=== PATIENT | female | born 1965 | race Caucasian/White ===

== ENCOUNTER 2017-05-13 10:23 | Outpatient (CLI) | payer BC ==
[2017-05-13 17:41] LABS: BILIRUBIN,URINE NEGATIVE (NEGATIVE)
[2017-05-13 18:16] LABS: UR CULTURE IF IND NOT INDICATED
== END 2017-05-13 10:24 | disposition home or self-care (01) ==
LOC: LAB.R 10:23
PROVIDERS: ATTEND Physician Assistant Medical
DX: N39.0 Urinary tract infection, site not specified (principal)
CPT/HCPCS: 81001; 87086

== ENCOUNTER 2019-12-14 17:07 | Outpatient (CLI) | payer BC | END 2019-12-14 17:08 | disposition home or self-care (01) | LOC: COV 17:07 | PROVIDERS: ATTEND Family Medicine | DX: R05 Cough (principal) ==

== ENCOUNTER 2021-08-03 11:30 | Outpatient (CLI) | payer BC ==
--- NOTE | 2021-08-03 17:11 | XRAY Report ---
PROCEDURE: Shoulder 3 View RT, x-ray INDICATIONS: RIGHT SHOULDER IMPINGEMENT TECHNIQUE: 3 views of the shoulder were acquired. COMPARISON: None. FINDINGS: Bones: No fractures or dislocations. No suspicious bony lesions. Visualized ribs appear intact. Mo derate AC joint hypertrophy noted. No dislocation. Soft tissues: No suspicious soft tissue calcifications. IMPRESSION: Moderate right AC joint hypertrophy. No fracture or dislocation. Reviewed by: Bry Marcum MD on 08/03/2021 4:09 PM [facility] Approved by: Bry Marcum MD on 08/03/2021 4:09 PM [place] Station ID: [id number]
== END 2021-08-03 23:59 | disposition home or self-care (01) ==
LOC: DI.N 11:30
PROVIDERS: ATTEND Physician Assistant Medical
DX: M75.41 Impingement syndrome of right shoulder (principal); M89.311 Hypertrophy of bone, right shoulder

== ENCOUNTER 2021-08-22 08:00 | Outpatient (CLI) | payer BC | END 2021-08-22 23:59 | disposition home or self-care (01) | LOC: LAB 08:00 | PROVIDERS: ATTEND Physician Assistant | DX: R09.81 Nasal congestion (principal); Z20.822 Contact with and (suspected) exposure to COVID-19 ==

== ENCOUNTER 2021-08-22 12:59 | Outpatient (CLI) | payer BC | END 2021-08-22 13:00 | disposition short-term general hospital (02) | LOC: EMS 12:59 | DX: R00.2 Palpitations (principal); R42 Dizziness and giddiness | CPT/HCPCS: A0425; A0427 ==

== ENCOUNTER 2022-02-24 08:00 | Outpatient (CLI) | payer BC | END 2022-02-24 23:59 | disposition home or self-care (01) | LOC: LAB.S 08:00 | PROVIDERS: ATTEND Emergency Medicine | DX: R19.7 Diarrhea, unspecified (principal) | CPT/HCPCS: 87493 ==

== ENCOUNTER 2023-05-03 23:41 | Outpatient (CLI) | payer BC | END 2023-05-03 23:59 | disposition critical access hospital (66) | LOC: EMS 23:41 | DX: M54.50 Low back pain, unspecified (principal); R25.2 Cramp and spasm; X50.9XXA Other and unspecified overexertion or strenuous movements or postures, initial encounter; Y92.008 Other place in unspecified non-institutional (private) residence as the place of occurrence of the external cause | CPT/HCPCS: A0425; A0427 ==

== ENCOUNTER 2023-05-04 00:07 | Emergency (ER) | payer BC ==
[2023-05-04] MEDS ORDERED: ONDANSETRON 4 MG/2 ML VIAL IVP STA (01:19)
[2023-05-04] MEDS ORDERED: HYDROmorphone 1 MG/ML CARPUJECT IVP STA (01:19)
[2023-05-04] MEDS ORDERED: DEXAMETHASONE 10 MG/ML VIAL IV STA (01:19)
[2023-05-04] MEDS ORDERED: CYCLOBENZAPRINE 10 MG TABLET PO STA (01:20)
[2023-05-04] MEDS ORDERED: SODIUM CHLORIDE 0.9% 1,000 ML IV STA (02:59)
--- NOTE | 2023-05-04 03:55 | ED Physician Documentation ---
History of Present Illness - Stated complaint Stated Complaint: BACK PX - Chief complaint Chief Complaint: Back Pain - History obtained from History obtained from: Patient, EMS - Additonal information Additional information: The patient comes to the emergency department chief complaint of low back spasms after pulling a muscle in her back while getting a heavy tent down from a high shelf in her garage yesterday. The patient states that she felt a twinge in her back at the time, but that did not hurt right away. However, as time went on, the patient began to have more pain in the area and then began having spasms triggered by various movements of her trunk or upper extremities. She states that the periods of spasm would last about 20 seconds and were very painful. The patient states she has been able to move around in bed as long as she does not move too fast, but was afraid to get up and walk around, so has been using a diaper today. However, she does state that she can control her bowels and bladder. No pain, numbness, or tingling radiating down her legs. No history of symptoms like this previously. She states she finally decided to come in because her episodes of spasm were getting closer and closer together and she could hardly move without triggering one. She states she has tried taking ibuprofen and Tylenol at home, but is not helping. No other complaints at this time. PD PAST MEDICAL HISTORY - Past Surgical History Past Surgical History: Yes Ortho: ACL reconstruction /[employer]: section, Hysterectomy - Present Medications Home Medications: Ambulatory Orders Medication Instructions Recorded Confirmed Cyclobenzaprine [Flexeril] 10 mg PO TID PRN #20 tablet 05/04/23 HYDROcod/ACETAM 5/325 [[place] 5/325] 1 - 2 tablet PO Q6H PRN #14 tablet 05/04/23 Ondansetron Odt [Zofran] 4 mg TL Q6H PRN #10 tablet 05/04/23 - Allergies Allergies/Adverse Reactions: Allergies Allergy/AdvReac Type Severity Reaction Status Date / Time acetaminophen [From Percocet] AdvReac Emesis Verified 05/04/23 00:12 oxycodone HCl * AdvReac Emesis Verified 05/04/23 00:12 [From Percocet] - Social History Does the pt smoke?: No Smoking Status: Never smoker Does the pt drink ETOH?: Yes Does the pt have substance abuse?: No - POLST Patient has POLST: No PD ED PE NORMAL - Vitals Vital signs reviewed: Yes - General General: Alert and oriented X 3, No acute distress, Well developed/nourished, Other (The patient is lying on her left side with legs curled up. She appears mildly uncomfortable but otherwise in no apparent distress.) - HEENT HEENT: Atraumatic, PERRL, EOMI, Moist mucous membranes - Neck Neck: Supple, no meningeal sign - Cardiac Cardiac: RRR, No murmur, Strong equal pulses - Respiratory Respiratory: No respiratory distress, Clear bilaterally - Abdomen Abdomen: Soft, Non tender, Non distended - Back Back: No spinal TTP, Other (Bilateral lumbar Paraspinal muscular tenderness. Small movements occasionally cause the patient to go into spasms during which time she appears very uncomfortable. Witnessed period of discomfort is approximately 20 to 30 seconds.) - Derm Derm: Normal color, Warm and dry, No rash - Extremities Extremities: No deformity - Neuro Neuro: Alert and oriented X 3 - Psych Psych: Normal mood, Normal affect Results - Vitals Vitals: Vital Signs - 24 hr 05/04/23 05/04/23 05/04/23 00:09 03:20 04:10 Temperature 36.5 C Heart Rate 62 73 70 Respiratory 16 14 16 Rate Blood Pressure 157/92 H 172/95 H 168/90 H O2 Saturation 96 97 97 Oxygen O2 Source Room air PD Medical Decision Making - ED course Complexity details: considered differential, d/w patient ED course: The patient was treated symptomatically with Decadron and Dilaudid, with improvement in symptoms. She was able to be sat up slowly without further spasm. The patient was stable for discharge home with her son. I discussed with her that her symptoms seem most consistent with a muscular strain with resultant spasm and that I expect she will improve on her own. However, we have discussed that if the patient does not experience resolution of symptoms in the next few weeks at most, she needs to see her primary doctor to discuss MRI. There is no evidence of spinal cord compromise at this time; however, we have di scussed the usual indications for return, which would include any symptoms of spinal cord compromise. Departure - Departure Disposition: 01 Home, Self Care Clinical Impression: Back pain Qualifiers: Back pain location: low back pain Chronicity: acute Back pain laterality: bilateral Sciatica presence: without sciatica Qualified Code(s): M54.50 - Low back pain, unspecified Condition: Stable Instructions: ED Low Back Pain Injury Prescriptions: Cyclobenzaprine [Flexeril] 10 mg PO TID PRN #20 tablet PRN Reason: Spasms HYDROcod/ACETAM 5/325 [[place] 5/325] 1 - 2 tablet PO Q6H PRN #14 tablet PRN Reason: Pain Ondansetron Odt [Zofran] 4 mg TL Q6H PRN #10 tablet PRN Reason: Nausea / Vomiting Comments: You have been treated today for your back pain and spasms. The medications you have been given are sedating and as such, you should not drive for the next 6 hours. Prescriptions for medications for pain and muscle relaxation been electronically transmitted to [facility] in [place]. You may take these along with ibuprofen to help with any pain or spasm that may recur. You may also use ice, heat, massage, and stretching to help relieve your symptoms. If you begin to notice chronic or ongoing issues with low back pain or spasm, you will need to follow-up with your primary doctor to discuss potentially having MRI done. At this point in time, however, you have most likely strained the muscles of your low back and these will be expected to heal on their own, given time. Discharge Date/Time: 05/04/23 04:15
[2023-05-04 04:08] VITALS: O2SAT 97
[2023-05-04 04:17] VITALS: BP 168/90
== END 2023-05-04 04:15 | disposition home or self-care (01) ==
LOC: EDUNIT# → ED 00:07
DX: M54.50 Low back pain, unspecified (principal)
CPT/HCPCS: 96374; 99283; A9270; J1170

== ENCOUNTER 2023-07-01 12:56 | Outpatient (CLI) | payer BC ==
[2023-07-01 20:16] LABS: BASOPHILS % (AUTO) 0.5 %; EOSINOPHILS # (AUTO) 0.1 10^3/uL (0.0-0.7); EOSINOPHILS % (AUTO) 1.6 %; HCT - HEMATOCRIT 43.4 % (37.0-47.0); HGB - HEMOGLOBIN 14.1 g/dL (12.0-16.0); LYMPHOCYTES # (AUTO) 1.3 10^3/uL (1.5-3.5); LYMPHOCYTES % (AUTO) 23.7 %; MEAN CORPUSCULAR HEMOGLOBIN 31.7 pg (27.0-31.0); MEAN CORPUSCULAR HGB CONC 32.5 g/dL (32.0-36.0); MEAN CORPUSCULAR VOLUME 97.5 fL (81.0-99.0); MEAN PLATELET VOLUME 11.5 fL (7.9-10.8); MONOCYTES # (AUTO) 0.5 10^3/uL (0.0-1.0); MONOCYTES % (AUTO) 8.3 %; NEUTROPHILS # (AUTO) 3.6 10^3/uL (1.5-6.6); NEUTROPHILS % (AUTO) 65.5 %; PLT - PLATELET COUNT 236 10^3/uL (130-450); RED BLOOD COUNT 4.45 10^6/uL (4.20-5.40); RED CELL DISTRIBUTION WIDTH 12.5 % (12.0-15.0); WHITE BLOOD COUNT 5.5 x10^3/uL (4.8-10.8)
[2023-07-01 20:58] LABS: ALBUMIN 4.8 g/dL (3.2-5.5); ALBUMIN/GLOBULIN RATIO 1.8 (1.0-2.2); ALKALINE PHOSPHATASE 64 IU/L (42-121); ALT ALANINE AMINOTRANSFERASE 29 IU/L (10-60); AST ASPARTATE AMINOTRANSFERASE 22 IU/L (10-42); BILIRUBIN,TOTAL 0.5 mg/dL (0.2-1.0); BUN - BLOOD UREA NITROGEN 12 mg/dL (6-20); CALCIUM 9.8 mg/dL (8.5-10.3); CARBON DIOXIDE - CO2 30 mmol/L (21-32); CHLORIDE 105 mmol/L (101-111); CHOL/HDL RATIO 3.3 (<4.4); CHOLESTEROL 231 mg/dL; CREATININE 0.6 mg/dL (0.6-1.3); GFR - MDRD 102 (>89); GLUCOSE 103 mg/dL (74-104); HDL CHOLESTEROL 70 mg/dL; LDL CHOLESTEROL,CALCULATED 123 mg/dL; LDL/HDL RATIO 1.8 (<4.4); POTASSIUM 4.2 mmol/L (3.5-4.5); SODIUM 140 mmol/L (135-145); TOTAL PROTEIN 7.4 g/dL (6.4-8.9); TRIGLYCERIDES 189 mg/dL (48-352); VLDL CHOLESTEROL 38 mg/dL
[2023-07-01 21:27] LABS: THYROID STIMULATING HORMONE 2.07 uIU/mL (0.34-5.60)
[2023-07-01 22:11] LABS: ESTIMATED AVERAGE GLUCOSE 108 mg/dL (70-100); HEMOGLOBIN A1c% 5.4 % (4.27-6.07)
--- NOTE | 2023-07-02 10:01 | Mammography Report ---
BILATERAL DIGITAL SCREENING MAMMOGRAM 3D/2D WITH AUGMENTATION: 07/01/2023 CLINICAL: Routine screening. No prior exams were available for comparison. There are scattered areas of fibroglandular density in both breasts (category b / 25%-50% glandular t issue). Bilateral breast implants are present. No significant masses, calcifications, or other findings are seen in either breast. IMPRESSION: NEGATIVE There is no mammographic evidence of malignancy. A 1 year screening mammogram is recommended. Based on the Tyrer Cuzick model (a risk assessment model) the patients lifetime risk is 8.8% and her 10 year risk is 3.5%. According to the ACR, ACS, and NCCN guidelines, an annual breast MRI exam murphy g with mammogram is recommended if the patients lifetime risk is 20% or greater. This exam was interpreted at Station ID: [id number]. NOTE: For mammograms, a report in lay terms will be sent to the patient. Approximately 15% of breast malignancies will not be visualized mammographically. In the management of a palpable breast mass, a negative mammogram must not discourage biopsy of a clinically suspicious lesion. Electronically Signed By: Bi Almeida M.D. aty/:07/02/2023 06:54:45 letter sent: No_Letter ACR BI-RADS Category 1: Negative 3341F PARENCHYMAL PATTERN: (A) - The breast(s) demonstrate(s) scattered fibroglandular densities. BI-RADS CATEGORY: (1) - 1 Mammogram [id number] 1 year screening LATERALITY: (B)
== END 2023-07-01 12:57 | disposition home or self-care (01) ==
LOC: DI.S 12:56
PROVIDERS: ATTEND Physician Assistant Medical
DX: Z12.31 Encounter for screening mammogram for malignant neoplasm of breast (principal); R92.323 Mammographic fibroglandular density, bilateral breasts; Z98.82 Breast implant status; I10 Essential (primary) hypertension; Z13.9 Encounter for screening, unspecified; F43.23 Adjustment disorder with mixed anxiety and depressed mood
CPT/HCPCS: 36415; 80053; 80061; 83036; 83721; 84443; 85025

== ENCOUNTER 2024-04-29 15:45 | Emergency (ER) | payer BC ==
--- NOTE | 2024-04-29 16:11 | ED Physician Documentation ---
PD HPI SKIN - Stated complaint Stated Complaint: ALLERGIC REACTION - Chief complaint Chief Complaint: Wound - History obtained from History obtained from: Patient - History of Present Illness Timing - onset: How many days ago (3) Timing - duration: Days (3) Timing - details: Gradual onset, Still present Location: Bodywide (started on face with itching, that increased to whole body. No vesicles. No swelling of lips/throat/tongue. Took cetirizine and then benadryl with only improved itching for few hours. Hoped it would fade. Persists now 3 days, worsening.) Quality / character: Itchy, Discolored (red rash/hives). No: Painful Improved by: No: Benadryl Worsened by (comment): COMMENT (warm shower) Associated symptoms: No: Fever, Myalgias, N/V/D Contributing factors: Exposed to medication (started losartan for BP about 6 weeks ago, so not new. No other new meds. Oral skin supplement (Vit E, etc) also about a month duration now. No Niacin in it.) Similar symptoms before: Has not had sx before Review of Systems Constitutional: denies: Fever, Chills Nose: denies: Rhinorrhea / runny nose, Congestion Throat: denies: Sore throat Respiratory: denies: Dyspnea PD PAST MEDICAL HISTORY - Past Medical History Past Medical History: Yes Cardiovascular: Hypertension Derm: Eczema - Past Surgical History Past Surgical History: Yes Ortho: ACL reconstruction /REAMER HAND: section, Hysterectomy - Present Medications Home Medications: Ambulatory Orders Medication Instructions Recorded Confirmed Cyclobenzaprine [Flexeril] 10 mg PO TID PRN #20 tablet 05/04/23 HYDROcod/ACETAM 5/325 [[place] 5/325] 1 - 2 tablet PO Q6H PRN #14 tablet 05/04/23 Ondansetron Odt [Zofran] 4 mg TL Q6H PRN #10 tablet 05/04/23 dexAMETHasone [Decadron] 4 mg PO DAILY #5 tablet 04/29/24 - Allergies Allergies/Adverse Reactions: Allergies Allergy/AdvReac Type Severity Reaction Status Date / Time acetaminophen [From Percocet] AdvReac Emesis Verified 04/29/24 16:03 oxycodone HCl * AdvReac Emesis Verified 04/29/24 16:03 [From Percocet] - Social History Does the pt smoke?: No Smoking Status: Never smoker Does the pt drink ETOH?: Yes Does the pt have substance abuse?: No - Immunizations Immunizations are current?: Yes - POLST Patient has POLST: No PD ED PE NORMAL - Vitals Vital signs reviewed: Yes - General General: Alert and oriented X 3, No acute distress (itching at face and neck at times. ), Well developed/nourished - HEENT HEENT: Pharynx benign, Other (no oral edema) - Neck Neck: Supple, no meningeal sign, No adenopathy - Derm Derm: Warm and dry, Other (patchy rather flat hives areas. no vesicles.) Results - Vitals Vitals: Vital Signs - 24 hr 04/29/24 15:59 Temperature 36.4 C L Heart Rate 84 Respiratory 20 Rate Blood Pressure 148/70 H O2 Saturation 100 Oxygen O2 Source Room air PD Medical Decision Making - ED course Complexity details: considered differential (allergic reaction. consider losartan but has been 6 weeks on it. Discusssed with pt to try steroids and continue natihistamines first, and if recurring/not fully resolving, then consider med cessations. ), d/w patient Departure - Departure Disposition: 01 Home, Self Care Clinical Impression: Allergic reaction Condition: Stable Record reviewed to determine appropriate education?: Yes Prescriptions: dexAMETHasone [Decadron] 4 mg PO DAILY #5 tablet Comments: It is possible your blood pressure medicine could be the cause of the allergic reaction however it does seem a little bit delayed from the time that you start ed it. At this point I would be more inclined to treated as a general allergic reaction and this time of year there is enough other environmental factors that could be causing with symptoms. Continue with the cetirizine/Zyrtec twice daily. Add Benadryl every 6 hours if needed for itchiness. In order to decrease the reaction part of your system, I would add steroid medicine Decadron daily for 5 more days. You were given a dose here as well. If this improves and resolves over the next few days then I would just see if it recurs again in the near future. At that point we may need to consider the losartan. Otherwise if it is a "1 off" and resolves then staying on the medicine is okay. Not been able to identify the particular trigger for an allergic reaction occurs easily good quarter to third of the time. Forms: PCP List Discharge Date/Time: 04/29/24 16:46
[2024-04-29 16:12] VITALS: BP 148/70; O2SAT 100
[2024-04-29] MEDS: dexAMETHasone 4 MG TABLET PO STA (16:36)
[2024-04-29] MEDS: CETIRIZINE 10 MG TABLET PO STA (16:36)
== END 2024-04-29 16:46 | disposition home or self-care (01) ==
LOC: ED 15:45
DX: T78.40XA Allergy, unspecified, initial encounter (principal); I10 Essential (primary) hypertension
CPT/HCPCS: 99283; A9270; J8540

== ENCOUNTER 2024-05-07 10:48 | Outpatient (CLI) | payer BC ==
[2024-05-07 11:02] LABS: BASOPHILS % (AUTO) 0.6 %; EOSINOPHILS # (AUTO) 0.1 10^3/uL (0.0-0.7); HCT - HEMATOCRIT 41.9 % (37.0-47.0); HGB - HEMOGLOBIN 14.1 g/dL (12.0-16.0); LYMPHOCYTES # (AUTO) 2.2 10^3/uL (1.5-3.5); LYMPHOCYTES % (AUTO) 33.6 %; MEAN CORPUSCULAR HEMOGLOBIN 32.9 pg (27.0-31.0); MEAN CORPUSCULAR HGB CONC 33.7 g/dL (32.0-36.0); MEAN CORPUSCULAR VOLUME 97.9 fL (81.0-99.0); MEAN PLATELET VOLUME 9.9 fL (7.9-10.8); MONOCYTES # (AUTO) 0.7 10^3/uL (0.0-1.0); MONOCYTES % (AUTO) 10.5 %; NEUTROPHILS # (AUTO) 3.4 10^3/uL (1.5-6.6); NEUTROPHILS % (AUTO) 52.7 %; PLT - PLATELET COUNT 254 10^3/uL (130-450); RED BLOOD COUNT 4.28 10^6/uL (4.20-5.40); RED CELL DISTRIBUTION WIDTH 12.5 % (12.0-15.0); WHITE BLOOD COUNT 6.5 x10^3/uL (4.8-10.8)
[2024-05-08 09:07] LABS: IMMUNOGLOBULIN A (IGA) 130 mg/dL (87-352); IMMUNOGLOBULIN G (IGG) 1084 mg/dL (586-1602); IMMUNOGLOBULIN M (IGM) 204 mg/dL (26-217)
== END 2024-05-07 10:49 | disposition home or self-care (01) ==
LOC: LAB 10:48
PROVIDERS: ATTEND Nurse Practitioner Gerontology
DX: L29.9 Pruritus, unspecified (principal); R21 Rash and other nonspecific skin eruption
CPT/HCPCS: 36415; 82784; 85025; 85651; 86140